=== PATIENT | female | born 1995 ===

== ENCOUNTER 2018-08-07 16:53 | Outpatient (REF) | payer MEDICAID, SELFPAY ==
[2018-08-07 21:18] LABS: Bilirubin Small (Negative); Blood Negative (Negative); Clarity Sl Cloudy; Glucose Negative (Negative); Ketones Negative (Negative); Leukocyte Esterase Trace (Negative); Nitrite Negative (Negative); Urobilinogen 0.2 EU/dL (Up TO 0.2)
[2018-08-07 22:12] LABS: Bacteria Moderate HPF (Negative); C & S Indicated? No/Sq. Contamination; Casts Negative LPF (Negative); Crystals Negative HPF (Negative); Epithelial Cells Moderate HPF (Negative); Mucus Trace (Negative); RBC Negative (0-2)
== END 2018-08-07 17:13 ==
LOC: NCHCN 16:53
PROVIDERS: PCP Nurse Practitioner Family; Visit Provider Nurse Practitioner Family
DX: R31.9 Hematuria, unspecified (principal)
CPT/HCPCS: 81003; 81015

== ENCOUNTER 2018-08-10 14:21 | Outpatient (REF) | payer MEDICAID, SELFPAY ==
[2018-08-10 22:18] LABS: ALT 45 U/L (12-78); AST 27 U/L (15-37); Albumin 3.3 g/dL (3.4-5.0); Alkaline Phosphatase 107 U/L (46-116); Bilirubin, Direct 0.15 mg/dL (0.00-0.20); Bilirubin, Total 0.5 mg/dL (0.2-1.0); Total Protein 7.6 g/dL (6.4-8.2)
[2018-08-14 11:37] LABS: Hepatitis A Antibody IgM Negative (NEGAT); Hepatitis B Core Antibody Negative (NEGAT); Hepatitis B surface Ag Negative (NEGAT); Hepatitis C Ab w Rflx HCV PCR Negative (NEGAT)
[2018-08-14 11:42] LABS: HIV-1/2 Ag & Ab Screen Negative (NEGAT)
== END 2018-08-10 14:41 ==
LOC: NCHCN 14:21
PROVIDERS: PCP Nurse Practitioner Family; Visit Provider Nurse Practitioner Family
DX: R82.2 Biliuria (principal); Z11.59 Encounter for screening for other viral diseases; Z11.4 Encounter for screening for human immunodeficiency virus [HIV]
CPT/HCPCS: 80076; 86704; 86709; 86803; 87340; 87389